=== PATIENT | female | born 1955 | race Caucasian/White ===

== ENCOUNTER → 2016-10-17 | Outpatient (REF) | payer OTHER ==
[~2016-10-17] MED LIST: ASPI325T PO; COUM2.5T11 PO; LORT5TAB PO; METO50TA2 PO; MIRA3350 PO; PRIL20CA9 PO; TYLE325T5 PO
[2016-10-17 17:54] LABS: BASO % 0.4 % (0.0-1.0); EOS # 0.1 K/mm3 (0.0-0.50); EOS % 1.2 % (0.0-3.0); LYMPH # 1.8 K/mm3 (1.5-4.5); LYMPH % 32.5 % (24.0-44.0); MEAN CORPUSCULAR HGB CONC 33.4 g/dl (32.0-36.5); MEAN CORPUSCULAR VOLUME 101.9 fl (80.0-96.0); MONO # 0.4 K/mm3 (0.0-0.8); MONO % 6.7 % (0.0-5.0); NEUTROPHILS % 57.1 % (36.0-66.0); RED CELL DISTRIBUTION WIDTH 11.6 % (11.5-14.5); WHITE BLOOD COUNT 5.2 K/mm3 (4.0-10.0)
[2016-10-17 18:38] LABS: ALBUMIN 3.6 GM/DL (3.2-5.2); ALKALINE PHOSPHATASE 99 U/L (45-117); ALT/SGPT 21 U/L (12-78); ANION GAP 6 MEQ/L (8-16); AST/SGOT 17 U/L (15-37); BILIRUBIN,TOTAL 0.7 MG/DL (0.2-1.0); BLOOD UREA NITROGEN 11 MG/DL (7-18); CARBON DIOXIDE LEVEL 30 MEQ/L (21-32); CHLORIDE LEVEL 104 MEQ/L (98-107); CHOLESTEROL LEVEL 160 MG/DL (<200); CREATININE FOR GFR 0.46 MG/DL (0.55-1.02); GLOMERULAR FILTRATION RATE > 60.0 (>45); GLUCOSE, FASTING 88 MG/DL (80-110); POTASSIUM SERUM 3.9 MEQ/L (3.5-5.1); SODIUM LEVEL 140 MEQ/L (136-145); TOTAL PROTEIN 7.2 GM/DL (6.4-8.2); TRIGLYCERIDES LEVEL 88 MG/DL (<150)
== END ==
LOC: M LABDRAW1 16:57
PROVIDERS: ATTEND Physician Assistant Medical
DX: I10 Essential (primary) hypertension (principal)

== ENCOUNTER → 2016-11-03 | Outpatient (REF) | payer OTHER | LOC: M LABDRAW1 15:44 | PROVIDERS: ATTEND Physician Assistant Medical | DX: D64.9 Anemia, unspecified (principal) ==

== ENCOUNTER → 2017-05-02 | Outpatient (REF) | payer OTHER ==
[~2017-05-02] MED LIST changes: -COUM2.5T11 PO; +COUM2.5T17 PO; -METO50TA2 PO; +METO50TA7 PO
[2017-05-02 16:29] LABS: BASO % 0.3 % (0.0-1.0); EOS # 0.1 10^3/uL (0.0-0.50); EOS % 1.6 % (0.0-3.0); IMMATURE GRANULOCYTE % 0.4 % (0-0); LYMPH % 29.3 % (24.0-44.0); MEAN CORPUSCULAR HEMOGLOBIN 32.3 pg (27.0-33.0); MEAN CORPUSCULAR HGB CONC 32.5 g/dl (32.0-36.5); MEAN CORPUSCULAR VOLUME 99.5 fl (80.0-96.0); MONO # 0.6 10^3/uL (0.0-0.8); MONO % 8.2 % (0.0-5.0); NEUTROPHILS % 60.2 % (36.0-66.0); PLATELET COUNT, AUTOMATED 193 10^3/uL (150-450); RED CELL DISTRIBUTION WIDTH 12.6 % (11.5-14.5); WHITE BLOOD COUNT 6.7 10^3/uL (4.0-10.0)
[2017-05-02 17:10] LABS: ALBUMIN 3.7 GM/DL (3.2-5.2); ALBUMIN/GLOBULIN RATIO 1.19 (1.00-1.93); ALKALINE PHOSPHATASE 79 U/L (45-117); ALT/SGPT 16 U/L (12-78); ANION GAP 9 MEQ/L (8-16); AST/SGOT 10 U/L (15-37); BLOOD UREA NITROGEN 18 MG/DL (7-18); CALCIUM LEVEL 8.9 MG/DL (8.8-10.2); CARBON DIOXIDE LEVEL 28 MEQ/L (21-32); CHLORIDE LEVEL 103 MEQ/L (98-107); CHOLESTEROL LEVEL 163 MG/DL (<200); CREATININE FOR GFR 0.76 MG/DL (0.55-1.02); GLOMERULAR FILTRATION RATE > 60.0 (>45); GLUCOSE, FASTING 78 MG/DL (80-110); POTASSIUM SERUM 3.8 MEQ/L (3.5-5.1); SODIUM LEVEL 140 MEQ/L (136-145); TOTAL PROTEIN 6.8 GM/DL (6.4-8.2); TRIGLYCERIDES LEVEL 73 MG/DL (<150)
== END ==
LOC: M LAB REF 15:44
PROVIDERS: ATTEND Physician Assistant Medical
DX: I10 Essential (primary) hypertension (principal)

== ENCOUNTER → 2018-03-29 | Outpatient (REF) | payer OTHER ==
[2018-03-29 19:36] LABS: RHEUMATOID FACTOR QUANT < 10.0 IU/ML (<15.0)
[2018-03-29 20:10] LABS: ERYTHROCYTE SEDIMENTATION RATE 8 mm/hr (0-30)
[2018-03-31 12:59] LABS: ANTINUCLEAR ANTIBODIES DIRECT Negative (Negative)
== END ==
LOC: M LABDRAW1 18:40
DX: M25.551 Pain in right hip (principal); M79.641 Pain in right hand
CPT/HCPCS: 85730

== ENCOUNTER → 2018-03-29 | Outpatient (REF) | payer OTHER ==
[2018-03-29 19:21] LABS: BASO % 0.6 % (0.0-1.0); EOS # 0.1 10^3/uL (0.0-0.50); EOS % 1.1 % (0.0-3.0); HEMATOCRIT 41.9 % (36.0-47.0); HEMOGLOBIN 13.9 g/dl (12.0-15.5); IMMATURE GRANULOCYTE % 0.3 % (0-3.0); LYMPH # 1.9 10^3/uL (1.5-4.5); LYMPH % 26.1 % (24.0-44.0); MEAN CORPUSCULAR HEMOGLOBIN 32.8 pg (27.0-33.0); MEAN CORPUSCULAR HGB CONC 33.2 g/dl (32.0-36.5); MEAN CORPUSCULAR VOLUME 98.8 fl (80.0-96.0); MONO # 0.6 10^3/uL (0.0-0.8); MONO % 8.8 % (0.0-5.0); NEUTROPHILS # 4.5 10^3/uL (1.8-7.7); NEUTROPHILS % 63.1 % (36.0-66.0); PLATELET COUNT, AUTOMATED 249 10^3/uL (150-450); RED BLOOD COUNT 4.24 10^6/uL (4.00-5.40); RED CELL DISTRIBUTION WIDTH 13.1 % (11.5-14.5); WHITE BLOOD COUNT 7.1 10^3/uL (4.0-10.0)
[2018-03-29 19:48] LABS: ALBUMIN 3.8 GM/DL (3.2-5.2); ALBUMIN/GLOBULIN RATIO 1.09 (1.00-1.93); ALKALINE PHOSPHATASE 107 U/L (45-117); ALT/SGPT 19 U/L (12-78); ANION GAP 8 MEQ/L (8-16); AST/SGOT 10 U/L (7-37); BILIRUBIN,TOTAL 0.7 MG/DL (0.2-1.0); BLOOD UREA NITROGEN 21 MG/DL (7-18); CALCIUM LEVEL 9.1 MG/DL (8.8-10.2); CARBON DIOXIDE LEVEL 29 MEQ/L (21-32); CHLORIDE LEVEL 101 MEQ/L (98-107); CHOLESTEROL LEVEL 154 MG/DL (<200); CHOLESTEROL RISK RATIO 2.524 (<5); CREATININE FOR GFR 0.85 MG/DL (0.55-1.30); FREE T4 1.21 NG/DL (0.76-1.46); GLOMERULAR FILTRATION RATE > 60.0 (>45); GLUCOSE, FASTING 91 MG/DL (70-100); HDL CHOLESTEROL 61 MG/DL (>40); LDL CHOLESTEROL 74 MG/DL (<100); NON-HDL-C 93 MG/DL; POTASSIUM SERUM 3.8 MEQ/L (3.5-5.1); SODIUM LEVEL 138 MEQ/L (136-145); TOTAL PROTEIN 7.3 GM/DL (6.4-8.2); TRIGLYCERIDES LEVEL 95 MG/DL (<150)
[2018-03-29 19:59] LABS: ESTIMATED AVERAGE GLUCOSE 100 MG/DL (60-110); HEMOGLOBIN A1c 5.1 %
== END ==
LOC: M LABDRAW1 18:38
DX: Z51.81 Encounter for therapeutic drug level monitoring (principal); Z79.899 Other long term (current) drug therapy; I63.9 Cerebral infarction, unspecified; E11.9 Type 2 diabetes mellitus without complications; E03.9 Hypothyroidism, unspecified; K21.9 Gastro-esophageal reflux disease without esophagitis
CPT/HCPCS: 84443

== ENCOUNTER → 2018-06-15 | Outpatient (REF) | payer OTHER ==
[2018-06-15 18:03] LABS: BASO % 0.3 % (0.0-1.0); EOS # 0.1 10^3/uL (0.0-0.50); EOS % 0.7 % (0.0-3.0); HEMATOCRIT 40.8 % (36.0-47.0); HEMOGLOBIN 13.7 g/dl (12.0-15.5); IMMATURE GRANULOCYTE % 0.4 % (0-3.0); LYMPH # 1.5 10^3/uL (1.5-4.5); LYMPH % 20.9 % (24.0-44.0); MEAN CORPUSCULAR HEMOGLOBIN 31.9 pg (27.0-33.0); MEAN CORPUSCULAR HGB CONC 33.6 g/dl (32.0-36.5); MEAN CORPUSCULAR VOLUME 95.1 fl (80.0-96.0); MONO # 0.6 10^3/uL (0.0-0.8); MONO % 8.1 % (0.0-5.0); NEUTROPHILS # 4.9 10^3/uL (1.8-7.7); NEUTROPHILS % 69.6 % (36.0-66.0); PLATELET COUNT, AUTOMATED 208 10^3/uL (150-450); RED BLOOD COUNT 4.29 10^6/uL (4.00-5.40); RED CELL DISTRIBUTION WIDTH 12.7 % (11.5-14.5)
[2018-06-15 18:11] LABS: ALBUMIN 3.4 GM/DL (3.2-5.2); ALBUMIN/GLOBULIN RATIO 0.94 (1.00-1.93); ALKALINE PHOSPHATASE 87 U/L (45-117); ALT/SGPT 17 U/L (12-78); ANION GAP 12 MEQ/L (8-16); AST/SGOT 12 U/L (7-37); BILIRUBIN,TOTAL 0.8 MG/DL (0.2-1.0); BLOOD UREA NITROGEN 21 MG/DL (7-18); CALCIUM LEVEL 8.6 MG/DL (8.8-10.2); CARBON DIOXIDE LEVEL 26 MEQ/L (21-32); CHLORIDE LEVEL 98 MEQ/L (98-107); CREATININE FOR GFR 0.86 MG/DL (0.55-1.30); GLOMERULAR FILTRATION RATE > 60.0 (>45); GLUCOSE, FASTING 90 MG/DL (70-100); POTASSIUM SERUM 4.1 MEQ/L (3.5-5.1); SODIUM LEVEL 136 MEQ/L (136-145)
== END ==
LOC: M LABDRAW1 16:53
DX: Z01.812 Encounter for preprocedural laboratory examination (principal)
CPT/HCPCS: 80053

== ENCOUNTER → 2018-11-15 | Outpatient (CLI) | payer MEDICARE ==
[~2018-11-15] MED LIST changes: +ASPI-1 PO; -ASPI325T PO
[2018-11-15 14:16] LABS: HEMATOCRIT 42.3 % (36.0-47.0); HEMOGLOBIN 13.7 g/dl (12.0-15.5); MEAN CORPUSCULAR HEMOGLOBIN 32.9 pg (27.0-33.0); MEAN CORPUSCULAR HGB CONC 32.4 g/dl (32.0-36.5); MEAN CORPUSCULAR VOLUME 101.7 fl (80.0-96.0); PLATELET COUNT, AUTOMATED 226 10^3/uL (150-450); RED BLOOD COUNT 4.16 10^6/uL (4.00-5.40); WHITE BLOOD COUNT 7.1 10^3/uL (4.0-10.0)
[2018-11-15 14:34] LABS: ERYTHROCYTE SEDIMENTATION RATE 13 mm/hr (0-30)
[2018-11-15 14:44] LABS: ALBUMIN 3.6 GM/DL (3.2-5.2); ALT/SGPT 20 U/L (12-78); BILIRUBIN,TOTAL 0.7 MG/DL (0.2-1.0); BLOOD UREA NITROGEN 25 MG/DL (7-18); CARBON DIOXIDE LEVEL 29 MEQ/L (21-32); CHLORIDE LEVEL 101 MEQ/L (98-107); CREATININE FOR GFR 0.93 MG/DL (0.55-1.30); GLOMERULAR FILTRATION RATE > 60.0 (>45); GLUCOSE, FASTING 91 MG/DL (70-100); POTASSIUM SERUM 3.8 MEQ/L (3.5-5.1); SODIUM LEVEL 137 MEQ/L (136-145)
[2018-11-15 14:54] LABS: INR 1.02; PROTHROMBIN TIME 13.5 SECONDS (12.1-14.4)
--- NOTE | 2018-11-16 01:31 | REP ---
Clinical: Preoperative assessment . Comparison: 05/25/2015 . Technique: PA and lateral. Findings: The mediastinum and cardiac silhouette are normal. The lung morales demonstrate chronic-appearing changes without acute consolidation, effusion, or pneumothorax. The skeletal structures are intact and normal. Impression: 1. No acute cardiopulmonary process. Electronically Signed by Oliver Garcia MD 11/16/2018 01:23 A
--- NOTE | 2018-11-16 23:53 | ECGEPIP ---
Stationary ECG Study [facility] Test Date: 2018-11-15 Pat Name: STARLA REY Department: Room: - Gender: F Computer Animator: LUCINDA : 1955 Requested By: Pal Cantu Order Number: [id number] Reading MD: Parrish Cronin Measurements Intervals [place] Rate: 54 P: 59 MA: 132 QRS: 47 QRSD: 89 T: 51 QT: 431 QTc: 409 Interpretive Statements SINUS BRADYCARDIA MOST RECENT TRACING THE SYSTEM ON 05/20/2014 AT 22:58:04 P.M.. SINUS BRADYCARDIA IS NEW Electronically Signed On 11-16-2018 23:53:15 EDT by Parrish Cronin
== END ==
LOC: M LAB 13:45
PROVIDERS: ATTEND Orthopaedic Surgery
DX: M16.11 Unilateral primary osteoarthritis, right hip (principal); Z79.01 Long term (current) use of anticoagulants

== ENCOUNTER 2018-12-14 06:04 | Inpatient (IN) | payer MEDICARE ==
--- NOTE | 2018-12-13 09:18 | HPE ---
DATE OF ADMISSION: 12/14/2018 ATTENDING PHYSICIAN: Dr. Pepe Spivey CHIEF COMPLAINT: Right hip pain and stiffness. HISTORY: This is a pleasant 63-year-old female patient with progressively worsening right hip pain and stiffness. She has failed to improve with conservative management and has continued pain with weightbearing activities. She has elected for surgery for her continued symptoms and has been consented for right total knee arthroplasty by Dr. Spivey. ALLERGIES: - LISINOPRIL - IBUPROFEN CURRENT MEDICATIONS: - metoprolol 50 mg one by mouth twice a day - losartan 100 mg one by mouth daily - chlorthalidone 50 mg one by mouth daily - omeprazole 20 mg one by mouth daily - aspirin 325 mg one by mouth daily - Bleph-10 10% 2 drops right eye every 4 hours PAST MEDICAL HISTORY: Hypertension, gastroesophageal reflux disease. PAST SURGICAL HISTORY: Right hip arthroscopy. SOCIAL HISTORY: The patient is a former smoker, quit in 2012. Consumes two glasses of wine per day. FAMILY HISTORY: Father , Alzheimer's. Mother , sarcoidosis. REVIEW OF SYSTEMS: The patient denies fever, chills, chest pain, shortness breath, nausea, vomiting, diarrhea. She does report pain in the right hip with weightbearing activities. Denies recent upper respiratory or urinary tract infection symptoms. PHYSICAL EXAMINATION: Vital Signs: Blood pressure 110/68, pulse 60, temperature 98.5, respirations 16. She is a normocephalic, atraumatic adult female who ambulates into the clinic today with a slightly antalgic gait favoring the right side. Examination of the right hip reveals pain throughout range of motion. The overlying skin is intact with no rashes, erythema, edema or ecchymosis. Neck is supple and nontender with no lymphadenopathy or jugular venous distention (JVD). Lungs are clear to auscultation bilaterally with no wheezes, rales or rhonchi. Heart: S1 and S2 auscultated with no murmurs, rubs or gallops. Abdomen: Soft, nontender. EKG noted for sinus bradycardia. Chest x-ray without acute cardiopulmonary processes. LABORATORY DATA: White count 7.1, red count 4.16, hemoglobin 13.7, hematocrit 42.3, ESR 13, BUN 25, creatinine 0.93. PREOPERATIVE MEDICAL OPTIMIZATION: By Dr. Velazquez was reviewed and is present today on the chart. IMPRESSION: Right hip symptomatic osteoarthritis. PLAN: Consented for right total hip arthroplasty with Dr. Spivey.
[~2018-12-14] VITALS: Ht 139.7 cm; Wt 51.3 kg
[~2018-12-14 06:04] MED LIST changes: +CHLO50TA PO; +LIDOCAINE 1% MDV 20ML VIAL SQ PRN; +LOSA100T50 PO; +OMEP-218 PO; +[UNRECOGNIZED DRUG - CODE] PO
[2018-12-14] MEDS ORDERED: LR 1,000 ML IV SCH ×2 (06:30→09:45)
[2018-12-14] MEDS ORDERED: ACETAMINOPHEN 500 MG TAB PO ONE (06:30)
[2018-12-14] MEDS ORDERED: ceFAZolin 1GM INJ (J0690 PER 500MG) As Ordered ONE (06:36)
[2018-12-14] MEDS ORDERED: EPINEPHrine INJ 1 MG/ML 1ML AMP As Ordered ONE (06:36)
[2018-12-14] MEDS ORDERED: BUPIVACAINE/DEXTROSE 0.75% 2 ML AMP As Ordered ONE (06:43)
[2018-12-14] MEDS ORDERED: PROPOFOL 200 MG/20 ML VIAL As Ordered ONE (06:43)
[2018-12-14] MEDS ORDERED: ONDANSETRON 4MG/2ML VIAL (J2405) As Ordered ONE (06:48)
[2018-12-14] MEDS ORDERED: LIDOCAINE 2% INJ 100 MG/5 ML SDV (FOR ANES.) As Ordered ONE (06:48)
[2018-12-14] MEDS ORDERED: dexameTHASONE 4 MG/ML 1ML VIAL (J1100) As Ordered ONE (06:48)
[2018-12-14] MEDS ORDERED: fentaNYL 100 MCG/2 ML INJECTION (J3010) As Ordered ONE (06:51)
[2018-12-14] MEDS ORDERED: MIDAZOLAM INJ 2 MG/2 ML VIAL (J2250) As Ordered ONE (06:51)
[2018-12-14] MEDS ORDERED: ePHEDrine SULFATE 25 MG/5 ML(5MG/ML) SYRINGE As Ordered ONE ×2 (08:12→08:37)
[2018-12-14] MEDS ORDERED: KETOROLAC 60 MG/2 ML VIAL (J1885) As Ordered ONE (08:43)
[2018-12-14] MEDS ORDERED: MORPHINE 1MG/ML IN 0.9% NACL 100ML IV BAG As Ordered ONE (09:44)
[2018-12-14] MEDS ORDERED: ONDANSETRON 4MG/2ML VIAL (J2405) IV PRN ×2 (09:45→10:00)
[2018-12-14] MEDS ORDERED: fentaNYL 100 MCG/2 ML INJECTION (J3010) IV PRN (09:45)
[2018-12-14] MEDS ORDERED: oxyCODONE 5MG TAB PO PRN (09:45)
[2018-12-14] MEDS ORDERED: diphenhydrAMINE INJ 50MG/ML VIAL (J1200) IV PRN (10:00)
[2018-12-14] MEDS ORDERED: NALBUPHINE HCL 10 MG/ML AMP (J2300) IV PRN (10:00)
[2018-12-14] MEDS ORDERED: EPIDURAL/PCA KEYS XX PRN (10:00)
[2018-12-14] MEDS ORDERED: MORPHINE 1MG/ML IN 0.9% NACL 100ML IV BAG IV PRN (10:00)
[2018-12-14] MEDS ORDERED: NALOXONE INJ 0.4 MG/1 ML VIAL (J2310) IV PRN (10:00)
[2018-12-14] MEDS ORDERED: FLEET ENEMA PR PRN (10:00)
[2018-12-14] MEDS ORDERED: ACETAMINOPHEN TAB 650MG DOSE (2X325MG) PO PRN (10:00)
--- NOTE | 2018-12-14 10:45 | REP ---
RIGHT HIP, TWO VIEWS: Two portable views of the right hip are performed. There is a total right hip prosthesis in good position. The osseous structures are intact and well aligned. Metallic skin xenia are seen laterally. Unreviewed
[2018-12-14 11:00] VITALS: BP 132/80
[2018-12-14 11:30] VITALS: BP_SYST 118; BP_SYST 127; BP_DIAS 80; BP_DIAS 82
[2018-12-14 12:30] VITALS: BP 118/82
--- NOTE | 2018-12-14 13:15 | HPEPDOC ---
General Date of Admission Dec 14, 2018 at 06:04 Date of Service: Dec 14, 2018 Chief Complaint The patient is a 63-year-old female admitted with a reason for visit of Osteoarthritis Right Hip. Source: Patient, Old records History of Present Illness Consultation report Consultation requested by Dr Pepe Barton Consultation for Medical comanagement. History of present illness: 63-year-old female patient with progressively worsening right hip pain and stiffness. She has failed to improve with conservative management and has continued pain with weightbearing activities. She has elected for surgery. She had elective right total hip arthroplasty by Dr. Spivey. Hospital has been consulted for management of her medical comorbidities. Home Medications Scheduled Aspirin (Aspirin EC) 325 Mg Tablet.dr, 325 MG PO DAILY, (Reported) Chlorthalidone (Chlorthalidone) 50 Mg Tablet, 50 MG PO DAILY, (Reported) Losartan Potassium (Losartan Potassium) 100 Mg Tablet, 100 MG PO DAILY, (Reported) Metoprolol Tartrate (Metoprolol Tartrate) 50 Mg Tab, 50 MG PO BID, (Reported) Omeprazole (Omeprazole) 20 Mg Capsule.dr, 20 MG PO DAILY, (Reported) Allergies Coded Allergies: lisinopril (Verified Adverse Reaction, Unknown, COUGH, 12/14/18) Past Medical History Medical History HTN, GERD, Stroke 6 years ago no residual deficits. Surgical History left total hip ORIF, Right hip ORIF 2013, hardware removal from right hip Family History Significant Family History: No pertinent family hx Social History * Smoker: Denies Alcohol: Denies Drugs: denies A-FIB/CHADSVASC A-FIB History Current/History of A-Fib/PAF?: No Review of Systems Constitutional: Denies: Chills, Fever, Night Sweats Eyes: Denies: Pain, Vision change ENT: Denies: Head Aches, Ear Pain, Dysphagia Skin: Denies: Rash, Lesions, Breakdown Pulmonary: Denies: Dyspnea, Cough Cardiovascular: Denies: Chest Pain, Palpitations, Orthopnea, Paroxysmal Noc. Dyspnea, Lt Headedness Gastrointestinal: Denies: Nausea, Vomiting, Abdominal Pain, Diarrhea Hematologic: Denies: Bruising, Bleeding Excessively Musculoskeletal: Denies: Neck Pain, Back Pain, Joint Pain, Muscle Pain, Spasms Neurological: Denies: Weakness, Numbness, Change in speech, Confusion Physical Examination General Exam: Positive: Alert, Cooperative, No Acute Distress Eye Exam: Positive: PERRLA, Conjunctiva & lids normal, EOMI; Negative: Sclera icteric ENT Exam: Positive: Atraumatic, Mucous membr. moist/pink, Pharynx Normal Neck Exam: Positive: Supple; Negative: JVD, thyromegaly Chest Exam: Positive: Clear to auscultation, Normal air movement Heart Exam: Positive: Rate Normal, Regular Rhythm, Normal S1, Normal S2; Negative: Murmurs, Rubs Abdomen Exam: Positive: Normal bowel sounds, Soft; Negative: Tenderness, Hepatospenomegaly Extremity Exam: Positive: Normal pulses; Negative: Clubbing, Cyanosis, Edema Skin Exam: Positive: Nl turgor and temperature; Negative: Breakdown, Lesion Vital Signs Vital Signs Date Time Temp Pulse Resp B/P (MAP) Pulse Ox O2 Delivery O2 Flow Rate FiO2 12/14/18 10:30 67 16 126/66 (86) 99 2 12/14/18 10:25 96.3 Assessment/Plan 63-year-old female patient with progressively worsening right hip pain and stiffness. She has failed to improve with conservative management and has continued pain with weightbearing activities. She has elected for surgery. She had elective right total hip arthroplasty by Dr. Spivey. Hospitalist has been consulted for management of her medical comorbidities. S/p right total hip arthroplasty pain control and dvt prophylaxis as per orthopedics Hypertension continue metoprolol hold losartan and HCTZ today will restart as needed. GERD continue PPI Plan / VTE VTE Prophylaxis Ordered?: Yes FARRUKH ACOSTA MD Dec 14, 2018 10:39
[2018-12-14 14:00] VITALS: BP 92/64
[2018-12-14 15:30] VITALS: BP 110/62
[2018-12-14] MEDS: LR 1,000 ML IV SCH ×2 (16:54→22:28)
[2018-12-14] MEDS: METOPROLOL TART 50 MG TAB PO SCH (22:02)
--- NOTE | 2018-12-14 22:32 | RO ---
DATE OF PROCEDURE: 12/14/2018 PREPROCEDURE DIAGNOSIS: Right hip degenerative arthritis. POSTPROCEDURE DIAGNOSIS: Right hip degenerative arthritis. PROCEDURE: Right total hip arthroplasty. SURGEON: Dr. Pal Spivey POST DOCTORAL FELLOW: Mr. Marcos Rosas ANESTHESIA: Spinal. ESTIMATED BLOOD LOSS: 200 mL. SPECIMENS: Femoral head. COMPLICATIONS: None. PROSTHESIS USED: Size 5 standard offset Adah stem with a +5 neck, with a 32 mm head, and a 52 mm Gription cup with a neutral polyethylene 32 mm liner. DESCRIPTION OF PROCEDURE: Antibiotics were given intravenously preoperatively and then successful spinal anesthetic was induced, and she was placed in a lateral decubitus and then her right hip was upper most. The Secretary hip positioner was utilized, the axillary roll was utilized, and her left leg was well padded, especially the peroneal nerve. Her right hip area was then carefully prepped and draped in the usual sterile fashion. After appropriate time-out, a longitudinal incision was made for a direct anterolateral approach to the hip. Bovie cautery was used to coagulate crossing vessels, tensor fascia divided. Gluteus medius split in the anterior one-third, posterior two-third junction, dissected down to the capsule and exposed the hip and externally rotated and dislocated the hip anteriorly, placed the leg in a leg bag. Piriformis fossa was defined and then the starter reamer utilized, followed by the canal finding reamer, then the lateralizing reamer. Then, we reamed up to a size 5 reamer, femoral neck osteotomy performed, and then broaching up to a size 5 was done. We were very careful and did not think it necessary to go to a 6 because there was a cortical defect posteriorly and proximally from the prior fracture deformity. Thus, I did not want to force a larger prosthesis. She had excellent stability to rotation, and the stem appeared to be quite solid and well fixed, so we felt the 5 would be the appropriate size. We then removed the broach, exposed the acetabulum, performed a labral excision 360 degrees, began reaming at 47 up to a size 51. The 52 trial fit nicely, thus we elected to go with that. Copiously irrigated. Placed the Gription cup using the extramedullary alignment jig to estimate being with the appropriate abduction and version. It seated nicely. The central hole eliminator was placed, irrigated, and then there was a large anterior osteophyte, which was removed with the osteotome and then the polyethylene was snapped into place. We irrigated the femoral canal once again, used the #5 trial broach, standard offset, and trialed with a +5, 32 head/neck combination. The hip was very stable with this construct, had minimal soft tissue telescoping, very stable to flexion and internal rotation and extension external rotation, thus I felt these were the appropriate size components to use. Trials were removed. We bone grafted the defect using the bone graft from the reamings from the acetabulum as well as from the box osteotome we utilized initially to expose the proximal end of the femur. We placed that in and around the area of the cortical defect that was posteriorly and proximally. The real stem was then placed, fit nicely. We dried off the trunnion and then placed the 32 x 0.5 ball and then impacted it in place, then reduced the hip after irrigating. We copiously pulsatile lavage irrigated out the hip joint and then closed the tensor fascia with interrupted #1 PDS sutures, the gluteus minimus and then the gluteus medius and anterior capsule were then closed anatomically, also, with interrupted #1 PDS sutures. Then, once that had been completed, we closed the tensor fascia with two #1 PDS sutures distally, then a running Stratafix, and then irrigated between layers again, closed the deep subdermal tissues with interrupted #2-0 PDS sutures, skin was closed with xenia, covered by an Optifoam and a dry sterile bulky dressing. Then, she was turned supine and then transferred to the recovery room in stable condition. There were no intraoperative complications. Mr. Rosas was critical to the success of this difficult operation by helping with appropriate soft tissue retraction, helped to prepare the patient, helped to close the wound, helped to dislocate and relocate the hip several times throughout the operation to allow me to perform the operation smoothly, efficiently, and safely.
[2018-12-14 23:30] VITALS: BP 128/64
[2018-12-15] MEDS ORDERED: ONDANSETRON 4 MG TAB (S0181) PO PRN (06:15)
[2018-12-15] MEDS ORDERED: PERCOCET 5MG/325MG TAB PO PRN ×2 (06:15)
[2018-12-15 07:30] VITALS: BP 115/62
[2018-12-15 07:30] LABS: HEMATOCRIT 28.6 % (36.0-47.0); HEMOGLOBIN 9.5 g/dl (12.0-15.5); MEAN CORPUSCULAR HEMOGLOBIN 32.5 pg (27.0-33.0); MEAN CORPUSCULAR HGB CONC 33.2 g/dl (32.0-36.5); MEAN CORPUSCULAR VOLUME 97.9 fl (80.0-96.0); PLATELET COUNT, AUTOMATED 125 10^3/uL (150-450); RED BLOOD COUNT 2.92 10^6/uL (4.00-5.40); WHITE BLOOD COUNT 9.8 10^3/uL (4.0-10.0)
[2018-12-15] MEDS ORDERED: XARE10TA PO (07:34)
[2018-12-15] MEDS ORDERED: PERC5TAB12 PO (07:34)
[2018-12-15 07:43] LABS: INR 1.11; PROTHROMBIN TIME 14.5 SECONDS (12.1-14.4)
[2018-12-15 07:53] LABS: BLOOD UREA NITROGEN 24 MG/DL (7-18); CALCIUM LEVEL 8.5 MG/DL (8.8-10.2); CARBON DIOXIDE LEVEL 27 MEQ/L (21-32); CHLORIDE LEVEL 104 MEQ/L (98-107); CREATININE FOR GFR 0.83 MG/DL (0.55-1.30); GLOMERULAR FILTRATION RATE > 60.0 (>45); GLUCOSE, FASTING 98 MG/DL (70-100); POTASSIUM SERUM 3.6 MEQ/L (3.5-5.1); SODIUM LEVEL 137 MEQ/L (136-145)
[2018-12-15] MEDS ORDERED: MIRALAX *UNIT DOSE* 17GM PACKET PO SCH (09:00)
[2018-12-15] MEDS ORDERED: OMEPRAZOLE 20 MG CAP PO SCH (09:00)
[2018-12-15] MEDS ORDERED: MOM 30ML SUSPENSION UDC PO SCH (09:00)
[2018-12-15] MEDS ORDERED: PREVNAR 13 VACCINE SYRINGE (CPT CODE:90670) IM ONE (09:00)
[2018-12-15 09:03] VITALS: BP 90/45
[2018-12-15 10:00] VITALS: BP 102/61
[2018-12-15 11:35] VITALS: BP 102/61
[2018-12-15] MEDS: METOPROLOL TART 50 MG TAB PO SCH (11:35)
[2018-12-15 14:00] VITALS: BP 119/87
[2018-12-15] MEDS ORDERED: RIVAROXABAN 10 MG TAB (XARELTO) PO SCH (18:00)
== END 2018-12-15 15:43 | disposition home or self-care (01) | DRG 470 ==
LOC: M OR 06:04 → M MS5PR 10:40
PROVIDERS: ADMIT Orthopaedic Surgery; ATTEND Orthopaedic Surgery
PROC: 0SR90JZ Replacement of Right Hip Joint with Synthetic Substitute, Open Approach (ICD-10-PCS; principal; 2018-12-14 07:30)
DX: M16.11 Unilateral primary osteoarthritis, right hip (principal); R26.89 Other abnormalities of gait and mobility; I10 Essential (primary) hypertension; K21.9 Gastro-esophageal reflux disease without esophagitis; Z79.82 Long term (current) use of aspirin; Z79.899 Other long term (current) drug therapy; Z96.642 Presence of left artificial hip joint

== ENCOUNTER → 2019-05-30 | Outpatient (REF) | payer MEDICARE ==
[~2019-05-30] MED LIST changes: +ASPI-525 PO; -LIDOCAINE 1% MDV 20ML VIAL SQ PRN; +PERC5TAB12 PO; +XARE10TA PO; -[UNRECOGNIZED DRUG - CODE] PO
[2019-05-30 19:01] LABS: ALBUMIN 3.7 GM/DL (3.2-5.2); BILIRUBIN,TOTAL 0.6 MG/DL (0.2-1.0); CALCIUM LEVEL 9.2 MG/DL (8.8-10.2); CHOLESTEROL RISK RATIO 2.405 (<5); CREATININE FOR GFR 1.05 MG/DL (0.55-1.30); GLOMERULAR FILTRATION RATE 55.8 (>45); POTASSIUM SERUM 4.3 MEQ/L (3.5-5.1); THYROID STIMULATING HORMONE 2.36 uIU/ML (0.358-3.740); TOTAL PROTEIN 7.2 GM/DL (6.4-8.2)
[2019-05-30 19:28] LABS: HEMOGLOBIN A1c 5.2 %
[2019-05-30 19:29] LABS: HEMATOCRIT 36.6 % (36.0-47.0); HEMOGLOBIN 11.7 g/dl (12.0-15.5); MEAN CORPUSCULAR HEMOGLOBIN 32.1 pg (27.0-33.0); MEAN CORPUSCULAR VOLUME 100.3 fl (80.0-96.0); PLATELET COUNT, AUTOMATED 196 10^3/uL (150-450); RED BLOOD COUNT 3.65 10^6/uL (4.00-5.40); WHITE BLOOD COUNT 6.3 10^3/uL (4.0-10.0)
== END ==
LOC: M LABDRAW1 18:15
PROVIDERS: ATTEND Nurse Practitioner Adult Health
DX: Z00.01 Encounter for general adult medical examination with abnormal findings (principal); Z79.899 Other long term (current) drug therapy

== ENCOUNTER → 2019-12-24 | Outpatient (CLI) | payer MEDICARE ==
[~2019-12-24] MED LIST changes: -ASPI-525 PO; +ASPI325T48 PO
[2019-12-24 13:58] LABS: HEMATOCRIT 36.8 % (36.0-47.0); HEMOGLOBIN 12.2 g/dl (12.0-15.5); MEAN CORPUSCULAR HEMOGLOBIN 33.2 pg (27.0-33.0); MEAN CORPUSCULAR HGB CONC 33.2 g/dl (32.0-36.5); PLATELET COUNT, AUTOMATED 170 10^3/uL (150-450); RED BLOOD COUNT 3.68 10^6/uL (4.00-5.40); WHITE BLOOD COUNT 6.4 10^3/uL (4.0-10.0)
[2019-12-24 14:06] LABS: ALBUMIN 3.6 GM/DL (3.2-5.2); BILIRUBIN,TOTAL 0.8 MG/DL (0.2-1.0); CALCIUM LEVEL 8.9 MG/DL (8.8-10.2); CREATININE FOR GFR 0.99 MG/DL (0.55-1.30); GLOMERULAR FILTRATION RATE 59.7 (>45); TOTAL PROTEIN 7.1 GM/DL (6.4-8.2)
== END ==
LOC: M LAB 12:32
PROVIDERS: ATTEND Internal Medicine Cardiovascular Disease
DX: K21.9 Gastro-esophageal reflux disease without esophagitis (principal)

== ENCOUNTER 2022-02-16 16:05 | Inpatient (IN) | payer MEDICARE ==
[~2022-02-16] VITALS: Ht 149.9 cm; Wt 49.5 kg
[~2022-02-16 16:05] MED LIST changes: +LOSA100T45 PO; -LOSA100T50 PO; +OMEP-173 PO; -OMEP-218 PO
[2022-02-16] MEDS ORDERED: ASPI-527 PO (16:14)
[2022-02-16 17:26] LABS: BASO # 0.1 10^3/uL (0.0-0.2); BASO % 0.5 % (0.0-1.0); EOS % 0.3 % (0.0-3.0); HEMATOCRIT 37.1 % (36.0-47.0); HEMOGLOBIN 12.2 g/dl (12.0-15.5); LYMPH # 1.8 10^3/uL (1.5-5.0); LYMPH % 16.5 % (24.0-44.0); MEAN CORPUSCULAR HEMOGLOBIN 31.2 pg (27.0-33.0); MEAN CORPUSCULAR HGB CONC 32.9 g/dl (32.0-36.5); MEAN CORPUSCULAR VOLUME 94.9 fl (80.0-96.0); MONO # 1.2 10^3/uL (0.0-0.8); MONO % 11.5 % (2.0-8.0); NEUTROPHILS # 7.6 10^3/uL (1.5-8.5); NEUTROPHILS % 70.7 % (36.0-66.0); PLATELET COUNT, AUTOMATED 238 10^3/uL (150-450); RED BLOOD COUNT 3.91 10^6/uL (4.00-5.40); WHITE BLOOD COUNT 10.7 10^3/uL (4.0-10.0)
[2022-02-16] MEDS ORDERED: cefTRIAXone SOD 1 GM in D5W MINI-BAG PLUS 50 ML IV ONE (17:30)
[2022-02-16 17:54] LABS: ERYTHROCYTE SEDIMENTATION RATE 59 mm/hr (0-30)
[2022-02-16] MEDS ORDERED: ACETAMINOPHEN TAB 650MG DOSE (2X325MG) PO ONE (18:25)
[2022-02-16 19:00] LABS: C REACTIVE PROTEIN QUANTITATIV 11.5 MG/DL (0.00-0.30); CALCIUM LEVEL 6.8 MG/DL (8.8-10.2); CREATININE FOR GFR 1.02 MG/DL (0.55-1.30); GLOMERULAR FILTRATION RATE 57.2 (>45)
[2022-02-16] MEDS ORDERED: HYDROMORPHONE HCL 0.5 MG/ 0.5 ML SYRINGE (J1170 PER 1) IV PRN (19:40)
[2022-02-16] MEDS ORDERED: PIPERACILLIN/TAZOBACTAM SOD 3.375 GM in D5W MINI-BAG PLUS 50 ML IV ONE (20:00)
[2022-02-16] MEDS ORDERED: VANCOMYCIN HCL 1,000 MG in IV FLUID PLACE HOLDER 1 EA IV ONE (20:00)
[2022-02-16] MEDS ORDERED: VANCOMYCIN HCL 1,000 MG, VIAL MATE ADAPTER 1 EACH in D5W 250 ML IV ONE (20:05)
[2022-02-16 20:19] LABS: RSV AMPLIFICATION NEGATIVE (NEGATIVE)
[2022-02-16] MEDS ORDERED: ACET-897 PO (22:12)
[2022-02-16] MEDS ORDERED: OYST500T92 PO (22:12)
[2022-02-16] MEDS ORDERED: ASPI-1 PO (22:12)
[2022-02-16] MEDS ORDERED: HOME MED LIST COMPLETE! XX SCH (22:15)
[2022-02-16] MEDS ORDERED: VANCOMYCIN HCL 750 MG, VIAL MATE ADAPTER 1 EACH in NS 250 ML IV SCH (22:40)
[2022-02-16 23:55] VITALS: BP 144/83
[2022-02-17] MEDS: PIPERACILLIN/TAZOBACTAM SOD 3.375 GM in D5W MINI-BAG PLUS 50 ML IV SCH ×4 (03:38→20:38)
[2022-02-17] MEDS ORDERED: NS 1,000 ML IV SCH (04:40)
[2022-02-17] MEDS ORDERED: KETOROLAC 30 MG/ML 1ML VIAL IV PRN (04:40)
[2022-02-17 05:00] VITALS: BP 106/58
[2022-02-17] MEDS: VANCOMYCIN HCL 500 MG in D5W MINI-BAG PLUS 100 ML IV SCH ×2 (05:28→17:29)
[2022-02-17] MEDS: ACETAMINOPHEN TAB 650MG DOSE (2X325MG) PO PRN (05:29)
[2022-02-17 06:28] LABS: BLOOD UREA NITROGEN 19 MG/DL (7-18); CALCIUM LEVEL 6.3 MG/DL (8.8-10.2); CARBON DIOXIDE LEVEL 27 MEQ/L (21-32); CHLORIDE LEVEL 101 MEQ/L (98-107); CREATININE FOR GFR 0.94 MG/DL (0.55-1.30); GLOMERULAR FILTRATION RATE > 60.0 (>45); GLUCOSE, FASTING 106 MG/DL (70-100); POTASSIUM SERUM 2.3 MEQ/L (3.5-5.1); SODIUM LEVEL 137 MEQ/L (136-145)
[2022-02-17] MEDS ORDERED: POTASSIUM CHLORIDE 10% LIQ 20 MEQ/15 ML UDC PO ONE (06:45)
[2022-02-17] MEDS ORDERED: KCL 10MEQ/100ML SWI (KRUN) 10 MEQ in IV 1 EA IV SCH (07:00)
[2022-02-17] MEDS ORDERED: KCL 40MEQ in NS 1000ML 1,000 ML IV SCH (07:15)
[2022-02-17 07:56] LABS: MAGNESIUM LEVEL 0.5 MG/DL (1.8-2.4)
[2022-02-17] MEDS ORDERED: MAG SULF 1GM/100ML (MAG RUN) 1 GM in IV 1 EA IV ONE (09:00)
[2022-02-17] MEDS: KCL 40MEQ IN D5/0.45NS 1000ML 1,000 ML IV SCH ×3 (11:11→20:39)
[2022-02-17 12:50] LABS: CREATININE FOR GFR 1.14 MG/DL (0.55-1.30); GLOMERULAR FILTRATION RATE 50.3 (>45); POTASSIUM SERUM 3.4 MEQ/L (3.5-5.1)
[2022-02-17 14:00] VITALS: BP 132/88
[2022-02-17] MEDS ORDERED: OMEPRAZOLE 20MG CAP PO ONE (16:20)
[2022-02-17 18:08] LABS: MAGNESIUM LEVEL 1.1 MG/DL (1.8-2.4)
[2022-02-17 19:54] VITALS: BP 135/87
[2022-02-18 00:47] LABS: MAGNESIUM LEVEL 0.9 MG/DL (1.8-2.4); POTASSIUM SERUM 4.3 MEQ/L (3.5-5.1)
[2022-02-18] MEDS: MAG SULF 1GM/100ML (MAG RUN) 1 GM in IV 1 EA IV SCH ×4 (01:13→05:23)
[2022-02-18] MEDS: ACETAMINOPHEN TAB 650MG DOSE (2X325MG) PO PRN (01:21)
[2022-02-18] MEDS: PIPERACILLIN/TAZOBACTAM SOD 3.375 GM in D5W MINI-BAG PLUS 50 ML IV SCH ×2 (02:21→09:41)
[2022-02-18] MEDS: KCL 40MEQ IN D5/0.45NS 1000ML 1,000 ML IV SCH (05:21)
[2022-02-18 05:45] LABS: BASO % 0.5 % (0.0-1.0); EOS # 0.1 10^3/uL (0.0-0.5); HEMATOCRIT 30.4 % (36.0-47.0); LYMPH # 1.6 10^3/uL (1.5-5.0); LYMPH % 25.3 % (24.0-44.0); MEAN CORPUSCULAR HEMOGLOBIN 31.2 pg (27.0-33.0); MEAN CORPUSCULAR HGB CONC 32.2 g/dl (32.0-36.5); MEAN CORPUSCULAR VOLUME 96.8 fl (80.0-96.0); MONO # 0.6 10^3/uL (0.0-0.8); NEUTROPHILS % 61.7 % (36.0-66.0); PLATELET COUNT, AUTOMATED 164 10^3/uL (150-450); RED BLOOD COUNT 3.14 10^6/uL (4.00-5.40); WHITE BLOOD COUNT 6.4 10^3/uL (4.0-10.0)
[2022-02-18 05:56] LABS: HEMOGLOBIN 9.8 g/dl (12.0-15.5)
[2022-02-18 06:00] VITALS: BP 103/60
[2022-02-18] MEDS: VANCOMYCIN HCL 500 MG in D5W MINI-BAG PLUS 100 ML IV SCH (06:14)
[2022-02-18 06:18] LABS: C REACTIVE PROTEIN QUANTITATIV 8.15 MG/DL (0.00-0.30); CREATININE FOR GFR 0.99 MG/DL (0.55-1.30); GLOMERULAR FILTRATION RATE 59.2 (>45); MAGNESIUM LEVEL 2.1 MG/DL (1.8-2.4); POTASSIUM SERUM 4.4 MEQ/L (3.5-5.1)
[2022-02-18] MEDS ORDERED: OMEPRAZOLE 20MG CAP PO SCH (09:00)
[2022-02-18] MEDS ORDERED: BACI1CAP PO (11:48)
[2022-02-18] MEDS ORDERED: BACT800T5 PO (11:48)
== END 2022-02-18 13:59 | disposition home or self-care (01) | DRG 558 ==
LOC: M ED 16:05 → M ED INP 19:38 → M MSPAV 23:50
PROVIDERS: ADMIT Internal Medicine; ATTEND General Practice
DX: M65.141 Other infective (teno)synovitis, right hand (principal); L03.113 Cellulitis of right upper limb; M19.90 Unspecified osteoarthritis, unspecified site; Z79.82 Long term (current) use of aspirin; Z79.899 Other long term (current) drug therapy; Z96.649 Presence of unspecified artificial hip joint; I10 Essential (primary) hypertension; Z20.822 Contact with and (suspected) exposure to COVID-19; E87.6 Hypokalemia; E83.42 Hypomagnesemia

== ENCOUNTER 2022-02-24 17:23 | Emergency (ER) | payer MEDICARE ==
[~2022-02-24] VITALS: Ht 154.9 cm; Wt 54.5 kg
[~2022-02-24 17:23] MED LIST changes: +ACET-897 PO; +ASPI-527 PO; +BACI1CAP PO; +BACT800T5 PO; +OYST500T92 PO
[2022-02-24] MEDS ORDERED: DERMABOND TOPICAL SKIN ADHESIVE TOP ONE (17:40)
[2022-02-24] MEDS ORDERED: BOOSTRIX/ADACEL VACCINE (DIPHTH/PERTUSS/ACELL/TETANUS) 0.5ML SYR IM ONE (17:40)
[2022-02-24 18:45] VITALS: BP 140/82
== END 2022-02-24 18:58 | disposition home or self-care (01) ==
LOC: M ED 17:23
DX: S01.112A Laceration without foreign body of left eyelid and periocular area, initial encounter (principal); S00.83XA Contusion of other part of head, initial encounter; W01.10XA Fall on same level from slipping, tripping and stumbling with subsequent striking against unspecified object, initial encounter; Y92.238 Other place in hospital as the place of occurrence of the external cause; I10 Essential (primary) hypertension; K21.9 Gastro-esophageal reflux disease without esophagitis; Z96.649 Presence of unspecified artificial hip joint; Z79.82 Long term (current) use of aspirin; Z79.899 Other long term (current) drug therapy; Z88.8 Allergy status to other drugs, medicaments and biological substances

== ENCOUNTER 2022-11-10 18:49 | Emergency (ER) | payer MEDICARE ==
[~2022-11-10] VITALS: Ht 149.9 cm; Wt 55.8 kg
[~2022-11-10 18:49] MED LIST changes: +AMLO1TAB24; +ERGO500029; +FURO20TA2; -LOSA100T45 PO; +LOSA100T46 PO; +MAGN400C2 PO; +POTA-151
[2022-11-10] MEDS ORDERED: vit b-12 (19:01)
[2022-11-10 21:57] LABS: BASO # 0.1 10^3/uL (0.0-0.2); BASO % 0.6 % (0.0-1.0); EOS # 0.2 10^3/uL (0.0-0.5); EOS % 2.1 % (0.0-3.0); HEMATOCRIT 41.8 % (36.0-47.0); HEMOGLOBIN 13.1 g/dl (12.0-15.5); LYMPH # 2.3 10^3/uL (1.5-5.0); LYMPH % 26.1 % (24.0-44.0); MEAN CORPUSCULAR HEMOGLOBIN 29.7 pg (27.0-33.0); MEAN CORPUSCULAR HGB CONC 31.3 g/dl (32.0-36.5); MEAN CORPUSCULAR VOLUME 94.8 fl (80.0-96.0); MONO % 11.3 % (2.0-8.0); NEUTROPHILS # 5.2 10^3/uL (1.5-8.5); NEUTROPHILS % 59.7 % (36.0-66.0); PLATELET COUNT, AUTOMATED 168 10^3/uL (150-450); RED BLOOD COUNT 4.41 10^6/uL (4.00-5.40); WHITE BLOOD COUNT 8.7 10^3/uL (4.0-10.0)
[2022-11-10 22:03] LABS: ERYTHROCYTE SEDIMENTATION RATE 39 mm/hr (0-30)
[2022-11-10 22:26] LABS: C REACTIVE PROTEIN QUANTITATIV < 0.40 MG/DL (<1.0)
[2022-11-10 22:27] LABS: BLOOD UREA NITROGEN 36 MG/DL (9-23); CALCIUM LEVEL 9.1 MG/DL (8.3-10.6); CARBON DIOXIDE LEVEL 28 MMOL/L (20-31); CHLORIDE LEVEL 105 MMOL/L (98-107); CREATININE FOR GFR 1.38 MG/DL (0.55-1.30); GLOMERULAR FILTRATION RATE 40.4 (>45); GLUCOSE, FASTING 95 MG/DL (74-106); POTASSIUM SERUM 4.7 MMOL/L (3.5-5.1); SODIUM LEVEL 139 MMOL/L (136-145)
[2022-11-10] MEDS ORDERED: FUROSEMIDE 20 MG TAB PO ONE (23:30)
[2022-11-10] MEDS ORDERED: CEPHALEXIN 500 MG CAP PO ONE (23:30)
[2022-11-10] MEDS ORDERED: FURO20TA2 PO (23:35)
[2022-11-10] MEDS ORDERED: CEPH500C PO (23:35)
[2022-11-11 00:08] VITALS: BP 157/85
== END 2022-11-11 00:15 | disposition home or self-care (01) ==
LOC: M ED 18:49
DX: I87.332 Chronic venous hypertension (idiopathic) with ulcer and inflammation of left lower extremity (principal); I87.2 Venous insufficiency (chronic) (peripheral); I10 Essential (primary) hypertension; D64.9 Anemia, unspecified; K21.9 Gastro-esophageal reflux disease without esophagitis; Z86.73 Personal history of transient ischemic attack (TIA), and cerebral infarction without residual deficits; Z88.8 Allergy status to other drugs, medicaments and biological substances; Z79.899 Other long term (current) drug therapy; Z79.82 Long term (current) use of aspirin

== ENCOUNTER → 2022-12-28 | Outpatient (CLI) | payer MEDICARE ==
[~2022-12-28] MED LIST changes: +CEPH500C PO; +FURO20TA2 PO; +vit b-12
== END ==
LOC: M RAD 10:58
PROVIDERS: ATTEND Surgery
DX: I87.312 Chronic venous hypertension (idiopathic) with ulcer of left lower extremity (principal); L97.211 Non-pressure chronic ulcer of right calf limited to breakdown of skin